=== PATIENT | male | born 1975 | race Caucasian/White ===

== ENCOUNTER 2020-05-19 09:43 | Emergency (ER) | payer SELFPAY ==
--- NOTE | 2020-05-19 10:27 | RAD ---
Exam: Single view of the pelvis HISTORY: Pelvic and hip pain COMPARISON: None FINDINGS: A single view the pelvis shows no evidence of acute fracture or dislocation. No degenerativ e changes seen in either hip. IMPRESSION: No evidence of acute osseous abnormality.
--- NOTE | 2020-05-19 10:28 | RAD ---
EXAM: Single view of the chest HISTORY: Knee pain and pelvic pain after trauma COMPARISON: 11/17/2019 FINDINGS: Single view of the chest shows a normal sized cardiomediastinal silhouette. There is no sylvia dence of consolidation, mass, or pleural effusion. No acute osseous abnormality. IMPRESSION: No evidence of acute cardiopulmonary disease
--- NOTE | 2020-05-19 10:53 | RAD ---
RIGHT KNEE 4 VIEWS: Date: 05/19/2020 HISTORY: Right knee pain. Trauma. FINDINGS/IMPRESSION: There are postop changes of ACL repair. No acute fracture or dislocation is identified. POS: [facility]
== END 2020-05-19 11:40 | disposition home or self-care (01) ==
LOC: ERS 09:43
DX: S89.91XA Unspecified injury of right lower leg, initial encounter (principal); M25.461 Effusion, right knee; F32.9 Major depressive disorder, single episode, unspecified; Z79.84 Long term (current) use of oral hypoglycemic drugs; W22.8XXA Striking against or struck by other objects, initial encounter
CPT/HCPCS: 71045; 72170